=== PATIENT | female | born 1950 | race Caucasian/White ===

== ENCOUNTER 2017-12-24 19:35 | Emergency (ER) | payer MEDICARE ==
[~2017-12-24] VITALS: Ht 167.6 cm; Wt 68.2 kg
[2017-12-24] MEDS ORDERED: ACETAMINOPHEN 325 MG TABLET PO ONE (20:15)
[2017-12-24 21:00] VITALS: BP 133/96
== END 2017-12-24 23:16 | disposition home or self-care (01) ==
LOC: EMS 19:36
DX: S70.02XA Contusion of left hip, initial encounter (principal); M54.5 Low back pain; W01.198A Fall on same level from slipping, tripping and stumbling with subsequent striking against other object, initial encounter; Y93.89 Activity, other specified; Y92.89 Other specified places as the place of occurrence of the external cause; Y99.8 Other external cause status
CPT/HCPCS: 72100; 73503; 73552; 99284